=== PATIENT | male | born 1960 | race Two or more races ===

== ENCOUNTER 2022-01-12 02:08 | Emergency (ER) | payer MEDICAID, OTHER ==
[~2022-01-12] VITALS: Ht 165.1 cm; Wt 75.7 kg
[2022-01-12 02:28] VITALS: BP 134/85
--- NOTE | 2022-01-12 02:30 | NUR ---
BIBSELF FROM HOME C/O LEFT SIDE FACIAL SWELLING SINCE 01/09. ON AMOXICILLIN 500 MG Q8H. PT AOX4. PT IS AMBULATORY. VSS. PT RATES PAIN AT A 9
--- NOTE | 2022-01-12 02:32 | NUR ---
DR. PASHA HOLLEY AT PT'S BEDSIDE
[2022-01-12] MEDS ORDERED: DEXAMETHASONE SOD PHOSPHATE 10 MG/ML VIAL ONE (02:45)
[2022-01-12] MEDS ORDERED: KETOROLAC TROMETHAMINE INJ 30 MG/ML VIAL ONE (02:45)
[2022-01-12] MEDS ORDERED: KETOROLAC TROMETHAMINE INJ 60 MG/2 ML VIAL IM ONE (03:00)
[2022-01-12] MEDS ORDERED: DEXAMETHASONE SOD PHOSPHATE 10 MG/ML VIAL IM ONE (03:00)
--- NOTE | 2022-01-12 03:00 | NUR ---
Patient discharged to home in stable condition. Written and verbal after care instructions given. Patient verbalizes understanding of instruction. AMB
== END 2022-01-12 03:01 | disposition home or self-care (01) ==
LOC: ER 02:11
DX: K04.7 Periapical abscess without sinus (principal); Z87.442 Personal history of urinary calculi
CPT/HCPCS: 99284; 96372; J1100; J1885

== ENCOUNTER 2022-03-20 16:49 | Emergency (ER) | payer OTHER ==
[~2022-03-20] VITALS: Ht 165.1 cm; Wt 72.6 kg
[2022-03-20 17:01] VITALS: BP 124/78
[2022-03-20] MEDS ORDERED: CLIN300C12 PO (17:11)
[2022-03-20] MEDS ORDERED: SULF1TAB48 PO (17:11)
[2022-03-20] MEDS ORDERED: IBUP-1953 PO (17:11)
[2022-03-20] MEDS ORDERED: KETOROLAC TROMETHAMINE INJ 30 MG/ML VIAL ONE (17:21)
[2022-03-20] MEDS ORDERED: KETOROLAC TROMETHAMINE INJ 60 MG/2 ML VIAL IM ONE (17:30)
== END 2022-03-20 17:32 | disposition home or self-care (01) ==
LOC: ER 17:12
DX: K04.7 Periapical abscess without sinus (principal); Z87.440 Personal history of urinary (tract) infections
CPT/HCPCS: 99283; 96372; J1885

== ENCOUNTER 2023-05-28 03:08 | Emergency (ER) | payer OTHER ==
[~2023-05-28] VITALS: Ht 165.1 cm; Wt 73.5 kg
[~2023-05-28 03:08] MED LIST: CLIN300C12 PO; IBUP-1953 PO; SULF1TAB48 PO
[2023-05-28 03:36] VITALS: BP 133/84; TEMP 98.7; O2SAT 98
[2023-05-28] MEDS ORDERED: AMOX-430 PO (03:45)
[2023-05-28] MEDS ORDERED: AMOX/CLAVULANATE 875 MG TABLET ONE (03:48)
[2023-05-28] MEDS ORDERED: IBUPROFEN 400 MG TABLET ONE (03:48)
[2023-05-28] MEDS: AMOX/CLAVULANATE 875 MG TABLET PO ONE (03:52)
[2023-05-28] MEDS: IBUPROFEN 400 MG TABLET PO ONE (03:52)
== END 2023-05-28 03:53 | disposition home or self-care (01) ==
LOC: ER 03:14
DX: K04.7 Periapical abscess without sinus (principal); Z87.442 Personal history of urinary calculi; Z79.899 Other long term (current) drug therapy